=== PATIENT | female | born 2000 | race Caucasian/White ===

== ENCOUNTER 2022-10-22 08:21 | Day surgery (SDC) | payer OTHER ==
[~2022-10-22] VITALS: Ht 160 cm; Wt 53.7 kg
[~2022-10-22 08:21] MED LIST: AMOX50SU PO
[2022-10-22] MEDS ORDERED: Bentyl20 MG (08:32)
[2022-10-22] MEDS ORDERED: ONDA4ODT (08:32)
== END 2022-10-22 10:10 | disposition home or self-care (01) ==
LOC: ORSCSDS 08:21
PROVIDERS: Internal Medicine Gastroenterology
PROC: 0DB98ZX Excision of Duodenum, Via Natural or Artificial Opening Endoscopic, Diagnostic (ICD-10-PCS; principal; 2022-10-22 09:30)
PROC: 0DB68ZX Excision of Stomach, Via Natural or Artificial Opening Endoscopic, Diagnostic (ICD-10-PCS; principal; 2022-10-22 09:30)
DX: R10.11 Right upper quadrant pain (principal); R11.0 Nausea; G47.30 Sleep apnea, unspecified; F17.210 Nicotine dependence, cigarettes, uncomplicated
CPT/HCPCS: 88305; 88342; J2250; J2704; J7120

== ENCOUNTER → 2022-12-01 | Outpatient (CLI) | payer OTHER ==
[~2022-12-01] MED LIST changes: +Bentyl20 MG; +ONDA4ODT
[2022-12-01 13:00] LABS: BASOPHILS ABSOLUTE AUTO 0.02 K/mm3 (0.00-0.23); BASOPHILS PERCENT AUTO 0 % (0-2); EOSINOPHILS ABSOLUTE AUTO 0.12 K/mm3 (0.00-0.68); EOSINOPHILS PERCENT AUTO 2 % (0-6); Hemoglobin 12.2 g/dL (11.5-16.0); IMMATURE GRAN ABSOLUTE AUTO 0.01 K/mm3 (0.00-0.10); IMMATURE GRAN PERCENT AUTO 0 % (0-1); LYMPHOCYTES ABSOLUTE AUTO 2.62 K/mm3 (0.84-5.20); LYMPHOCYTES PERCENT AUTO 41 % (21-46); MONOCYTES ABSOLUTE AUTO 0.34 K/mm3 (0.16-1.47); MONOCYTES PERCENT AUTO 5 % (4-13); Mean Corpuscular HGB 27.4 pg (26.0-34.0); Mean Corpuscular Volume 83 fL (80-100); Mean Platelet Volume 9.8 fL (9.1-12.4); NEUTROPHILS ABSOLUTE AUTO 3.34 K/mm3 (1.96-9.15); NEUTROPHILS PERCENT AUTO 52 % (41-73); Platelet Count 347 K/mm3 (150-400); RDW Standard Deviation 38.9 fL (35.1-46.3); Red Blood Cell Count 4.45 M/mm3 (3.80-5.20); White Blood Cell Count 6.45 K/mm3 (4.00-11.30)
[2022-12-01 13:09] LABS: Albumin, Blood 4.5 g/dL (3.4-5.0); Albumin/Globulin Ratio 1.3 (0.8-1.8); Bilirubin, Total 0.9 mg/dL (0.1-1.0); Calcium, Blood 9.7 mg/dL (8.5-10.1); Creatinine, Blood 0.55 mg/dL (0.40-1.00); Globulin, Blood 3.6 g/dL (2.2-4.0); Potassium, Blood 4.1 mmol/L (3.5-5.5); Total Protein, Blood 8.1 g/dL (6.4-8.2)
== END | disposition home or self-care (01) ==
LOC: LAB SHORT 12:53
PROVIDERS: Emergency Medicine
DX: R10.11 Right upper quadrant pain (principal)
CPT/HCPCS: 80053; 83690; 85025

== ENCOUNTER 2023-04-16 13:16 | Emergency (ER) | payer BC, OTHER ==
[~2023-04-16] VITALS: Ht 160 cm; Wt 52.2 kg
[2023-04-16 13:44] VITALS: BP 122/84
[2023-04-16] MEDS ORDERED: CEPH500 PO (14:21)
== END 2023-04-16 16:42 | disposition home or self-care (01) ==
LOC: ER 13:16
DX: S62.633B Displaced fracture of distal phalanx of left middle finger, initial encounter for open fracture (principal); W23.0XXA Caught, crushed, jammed, or pinched between moving objects, initial encounter
CPT/HCPCS: 12001; 73140; 90471; 90714; 96365-59; 99283-25; J0690

== ENCOUNTER 2023-10-13 11:59 | Emergency (ER) | payer OTHER ==
[~2023-10-13] VITALS: Ht 162.6 cm; Wt 54.4 kg
[~2023-10-13 11:59] MED LIST changes: +CEPH500 PO
[2023-10-13 13:02] LABS: BASOPHILS ABSOLUTE AUTO 0.03 K/mm3 (0.00-0.23); BASOPHILS PERCENT AUTO 0 % (0-2); EOSINOPHILS ABSOLUTE AUTO 0.01 K/mm3 (0.00-0.68); EOSINOPHILS PERCENT AUTO 0 % (0-6); Hematocrit 34.6 % (33.0-51.0); Hemoglobin 11.7 g/dL (11.5-16.0); IMMATURE GRAN ABSOLUTE AUTO 0.06 K/mm3 (0.00-0.10); IMMATURE GRAN PERCENT AUTO 1 % (0-1); LYMPHOCYTES ABSOLUTE AUTO 1.23 K/mm3 (0.84-5.20); LYMPHOCYTES PERCENT AUTO 10 % (21-46); MONOCYTES ABSOLUTE AUTO 0.23 K/mm3 (0.16-1.47); MONOCYTES PERCENT AUTO 2 % (4-13); Mean Corpuscular HGB 27.7 pg (26.0-34.0); Mean Corpuscular HGB Conc 33.8 g/dL (31.5-36.5); Mean Corpuscular Volume 82 fL (80-100); Mean Platelet Volume 9.6 fL (9.1-12.4); NEUTROPHILS ABSOLUTE AUTO 10.69 K/mm3 (1.96-9.15); NEUTROPHILS PERCENT AUTO 87 % (41-73); Platelet Count 393 K/mm3 (150-400); RDW Coefficient Variation 12.5 % (11.7-14.2); RDW Standard Deviation 37.2 fL (35.1-46.3); Red Blood Cell Count 4.22 M/mm3 (3.80-5.20); White Blood Cell Count 12.25 K/mm3 (4.00-11.30)
[2023-10-13 13:18] LABS: Source, Urine Clean Catch
[2023-10-13 13:20] LABS: Albumin, Blood 4.6 g/dL (3.4-5.0); Albumin/Globulin Ratio 1.3 (0.8-1.8); Bilirubin, Total 0.6 mg/dL (0.1-1.0); Bun/Creatinine Ratio 26.5 (12.0-20.0); Calcium, Blood 9.6 mg/dL (8.5-10.1); Creatinine, Blood 0.45 mg/dL (0.40-1.00); Globulin, Blood 3.5 g/dL (2.2-4.0); Potassium, Blood 4.2 mmol/L (3.5-5.5); Total Protein, Blood 8.1 g/dL (6.4-8.2)
[2023-10-13 13:32] LABS: Appearance, Urine Cloudy (Clear); Bilirubin, Urine Neg (Neg); Blood, Urine 4+ (Neg); Color, Urine Yellow (P-Yellow); Glucose Qualitative, Urine Neg (Neg); Ketones, Urine 4+ (Neg); Leukocyte Esterase, Urine 3+ (Neg); Nitrite, Urine Pos (Neg); Protein, Urine Neg (Neg); Specific Gravity, Urine 1.015 (1.003-1.022); Urobilinogen, Urine NORM (Normal)
[2023-10-13 13:34] LABS: Amorphous Light (0-Heavy); Bacteria Many /hpf; Squamous Epithelial Cells Mod /hpf (Few); White Blood Cells, Urine 50-100 /hpf (0-5)
[2023-10-13 16:30] VITALS: BP 112/83
== END 2023-10-13 17:51 | disposition home or self-care (01) ==
LOC: ER 11:59
PROVIDERS: Physician Assistant
DX: R10.11 Right upper quadrant pain (principal); R11.2 Nausea with vomiting, unspecified; Z79.899 Other long term (current) drug therapy
CPT/HCPCS: 74177; 76705; 80053; 81001; 81025; 83690; 85025; 87077; 87086; 87186; 96361; 96374; 96375; 99284-25; A9270; J1885; J2405; J7030; Q9967

== ENCOUNTER 2024-02-12 12:34 | Emergency (ER) | payer OTHER ==
[~2024-02-12] VITALS: Ht 160 cm; Wt 52.2 kg
[2024-02-12 13:05] LABS: Source, Urine Clean Catch
[2024-02-12 13:09] LABS: Appearance, Urine Hazy (Clear); Bilirubin, Urine Neg (Neg); Blood, Urine 4+ (Neg); Color, Urine Yellow (P-Yellow); Glucose Qualitative, Urine Neg (Neg); Ketones, Urine Neg (Neg); Leukocyte Esterase, Urine 1+ (Neg); Nitrite, Urine Pos (Neg); Protein, Urine Neg (Neg); Specific Gravity, Urine 1.025 (1.003-1.022); Urobilinogen, Urine NORM (Normal)
[2024-02-12 13:29] LABS: Bacteria Many /hpf; Mucus Light (0-Heavy); Squamous Epithelial Cells Few /hpf (Few)
[2024-02-12 13:54] LABS: BASOPHILS ABSOLUTE AUTO 0.03 K/mm3 (0.00-0.23); BASOPHILS PERCENT AUTO 0 % (0-2); EOSINOPHILS ABSOLUTE AUTO 0.03 K/mm3 (0.00-0.68); EOSINOPHILS PERCENT AUTO 0 % (0-6); Hematocrit 35.3 % (33.0-51.0); Hemoglobin 11.6 g/dL (11.5-16.0); IMMATURE GRAN ABSOLUTE AUTO 0.01 K/mm3 (0.00-0.10); IMMATURE GRAN PERCENT AUTO 0 % (0-1); LYMPHOCYTES ABSOLUTE AUTO 2.52 K/mm3 (0.84-5.20); LYMPHOCYTES PERCENT AUTO 32 % (21-46); MONOCYTES ABSOLUTE AUTO 0.51 K/mm3 (0.16-1.47); MONOCYTES PERCENT AUTO 6 % (4-13); Mean Corpuscular HGB 27.6 pg (26.0-34.0); Mean Corpuscular HGB Conc 32.9 g/dL (31.5-36.5); Mean Corpuscular Volume 84 fL (80-100); NEUTROPHILS ABSOLUTE AUTO 4.88 K/mm3 (1.96-9.15); NEUTROPHILS PERCENT AUTO 61 % (41-73); Platelet Count 332 K/mm3 (150-400); RDW Coefficient Variation 12.8 % (11.7-14.2); RDW Standard Deviation 39.2 fL (35.1-46.3); White Blood Cell Count 7.98 K/mm3 (4.00-11.30)
[2024-02-12] MEDS ORDERED: CELE100 PO (14:03)
[2024-02-12 14:07] LABS: Albumin, Blood 4.3 g/dL (3.4-5.0); Albumin/Globulin Ratio 1.3 (0.8-1.8); Bilirubin, Total 1.2 mg/dL (0.1-1.0); Calcium, Blood 9.6 mg/dL (8.5-10.1); Creatinine, Blood 0.56 mg/dL (0.40-1.00); Globulin, Blood 3.4 g/dL (2.2-4.0); Potassium, Blood 3.7 mmol/L (3.5-5.5); Total Protein, Blood 7.7 g/dL (6.4-8.2)
[2024-02-12 15:01] VITALS: BP 117/75
== END 2024-02-12 15:01 | disposition home or self-care (01) ==
LOC: ER 12:34
PROVIDERS: Student in an Organized Health Care Education/Training Program
DX: N39.0 Urinary tract infection, site not specified (principal); Z79.899 Other long term (current) drug therapy
CPT/HCPCS: 76705; 80053; 81001; 81025; 83690; 85025; 87077; 87086; 87186; 99284-25

== ENCOUNTER 2024-04-20 08:25 | Day surgery (SDC) | payer OTHER ==
[~2024-04-20] VITALS: Ht 162.6 cm; Wt 52.6 kg
[~2024-04-20 08:25] MED LIST changes: +CELE100 PO; +CefOXitin Sodium 2,000 MG in NS 50 ML IV SCH; +Indocyanine Green 25 MG Vial IV ONE; +Lactated Ringer's 1,000 ML IV SCH
[2024-04-20] MEDS ORDERED: OMEP20ER (09:01)
--- NOTE | 2024-04-20 09:09 | NUR ---
Ambulatory in Day Surgery Patient confirms NPO status and agrees with scheduled surgery. History, Chart, Medications and Allergies reviewed before start of procedure.Pre-Op teaching done. Pt verbalizes understanding. Patient States Post-Procedure ride home has been arranged.
[2024-04-20] MEDS ORDERED: Bupivacaine 0.5% HCl 5 MG/ML 30MLVIAL ONE (09:30)
[2024-04-20] MEDS ORDERED: Rocuronium Bromide 10 MG/ML 5ML Injection IV ONE (09:43)
[2024-04-20] MEDS ORDERED: FentaNYL Citrate 50 MCG/ML 2 ML Injection ONE ×2 (09:43→10:26)
[2024-04-20] MEDS ORDERED: propofoL 20 ML IV ONE (09:43)
[2024-04-20] MEDS ORDERED: HYDROmorphone HCl/Pf 1MG SYR ONE (10:07)
[2024-04-20] MEDS ORDERED: Metoclopramide HCl 5MG / ML 2ML Vial ONE (10:16)
[2024-04-20] MEDS ORDERED: Ondansetron HCl 2 MG / ML 2ML Vial ONE (10:16)
[2024-04-20] MEDS ORDERED: Dexamethasone Sod Phos 10 MG/ML 1ML VIAL ONE (10:16)
[2024-04-20] MEDS ORDERED: Sugammadex Sodium 200 MG/2ML SDV (100 MG/ML) ONE (10:59)
[2024-04-20] MEDS ORDERED: Atropine Sulfate 0.4 MG/1 ML Vial ONE (11:03)
[2024-04-20 11:20] VITALS: BP 126/81
[2024-04-20 11:25] VITALS: BP 120/78
[2024-04-20 11:30] VITALS: BP 126/91
[2024-04-20] MEDS ORDERED: OxyCODONE 5 mg/Acetamin 325 mg TABLET PO PRN (11:30)
[2024-04-20 11:35] VITALS: BP 120/81
[2024-04-20 11:42] VITALS: BP 120/80
[2024-04-20 12:01] VITALS: BP 126/92
--- NOTE | 2024-04-20 12:10 | NUR ---
Discharge instructions reviewed with patient. Patient verbalizes understanding. Copy given to patient to take home. Dressing X4 c/d/i. Patient States Post-Procedure ride home has been arranged. Discharged via wheelchair to private car for ride home.
== END 2024-04-20 12:14 | disposition home or self-care (01) ==
LOC: ORSCMMR 08:25 → ORD 10:00 → ORSCMMR 12:14
PROVIDERS: Surgery
PROC: BF031ZZ Plain Radiography of Gallbladder and Bile Ducts using Low Osmolar Contrast (ICD-10-PCS; principal; 2024-04-20 10:00)
PROC: 0FT44ZZ Resection of Gallbladder, Percutaneous Endoscopic Approach (ICD-10-PCS; principal; 2024-04-20 10:00)
DX: K80.20 Calculus of gallbladder without cholecystitis without obstruction (principal); F17.210 Nicotine dependence, cigarettes, uncomplicated; Z79.899 Other long term (current) drug therapy
CPT/HCPCS: 88304; A9270; J0461; J0694; J1100; J1170; J2405; J2704; J2765; J3010; J7120